=== PATIENT | male | born 1985 | race Caucasian/White ===

== ENCOUNTER 2019-08-02 11:07 | Emergency (ER) | payer BC, OTHER ==
[2019-08-02 11:16] VITALS: BP 120/81; PULSE 86; BMI 27.3
[2019-08-02] MEDS ORDERED: ACETAMINOPHEN 325 MG TABLET (FP) PO ONE (11:20)
--- NOTE | 2019-08-02 11:25 | PDOC ---
History of Present Illness - General Chief Complaint: Cold Symptoms Stated Complaint: BODY ACHES/SORE THROAT Time Seen by Provider: 08/02/19 11:15 History Source: Patient Exam Limitations: No Limitations Past History - Past Medical History Allergies/Adverse Reactions: Allergies Allergy/AdvReac Type Severity Reaction Status Date / Time Penicillins Allergy Verified 08/02/19 11:12 Home Medications: Ambulatory Orders NK [No Known Home Medication] 06/06/14 COPD: No - Immunization History Immunization Up to Date: Yes - Psycho Social/Smoking Cessation Hx Smoking History: Never smoked Number of Cigarettes Smoked Daily: 0 Hx Alcohol Use: No Drug/Substance Use Hx: No Substance Use Type: None Hx Substance Use Treatment: No *Physical Exam - Vital Signs Last Vital Signs Temp Pulse Resp BP Pulse Ox 102 F H 86 19 120/81 98 08/02/19 11:11 08/02/19 11:11 08/02/19 11:11 08/02/19 11:11 08/02/19 11:11 - Physical Exam General Appearance: No: Apparent Distress HEENT: positive: Pharyngeal Erythema. negative: Muffled/Hoarse voice, Tonsillar Exudate, Tonsillar Erythema, Nasal Congestion, Rhinorrhea Respiratory/Chest: positive: Lungs Clear, Normal Breath Sounds. negative: Respiratory Distress Cardiovascular: positive: Regular Rhythm, Regular Rate, S1, S2. negative: Murmur Integumentary: positive: Normal Color Neurologic: positive: Alert Medical Decision Making - Medical Decision Making 34 y/o M with no sig pmh presents with fever, sore throat, body aches, cough, KEMP x 2 days. Fever started last night. Had some rhinorrhea and congestion which resolved yesterday. Denies ear pain, sob, cp, abd pain, n/v/d, recent travel, sick contacts. R/O flu Plan: Flu swab, tylenol 08/02/19 11:24 Flu and rapid strep negative Repeat temp 100.1 Patient overall looking better Likely viral syndrome Supportive care discussed 08/02/19 12:51 Discharge - Discharge Information Problems reviewed: Yes Clinical Impression/Diagnosis: Viral syndrome Condition: Stable Disposition: HOME - Admission No - Additional Discharge Information Prescription Drug Monitoring Program (I-STOP) results: I-STOP not reviewed - Follow up/Referral - Patient Discharge Instructions Patient Printed Discharge Instructions: DI for Viral Upper Respiratory Infection -- Adult Additional Instructions: Thank you for choosing [facility]. It was a pleasure taking care of you. Recommend rest Drink at least 2-3L of water daily Alternate between Tylenol every 4 and Motrin every 6 hours as needed for fever Follow-up with your doctor in 2 days Return to the Emergency Department if your symptoms worsen or persist or have other concerning symptoms. - Post Discharge Activity
[2019-08-02] MEDS ORDERED: ACETAMINOPHEN 325 MG TABLET (FP) ONE (11:30)
[2019-08-02] MEDS ORDERED: KETOROLAC TROMETHAMINE 30 MG/1 ML VIAL IM ONE (12:05)
[2019-08-02] MEDS ORDERED: KETOROLAC TROMETHAMINE 30 MG/1 ML VIAL ONE (12:25)
[2019-08-02 12:50] VITALS: TEMP 100.1
== END 2019-08-02 13:05 | disposition home or self-care (01) ==
LOC: JERFT 11:07
PROC: 3E0233Z Introduction of Anti-inflammatory into Muscle, Percutaneous Approach (ICD-10-PCS; principal; 2019-08-02)
DX: J06.9 Acute upper respiratory infection, unspecified (principal); B97.89 Other viral agents as the cause of diseases classified elsewhere; Z88.0 Allergy status to penicillin
CPT/HCPCS: 87070; 87804; 87880; 99281-25

== ENCOUNTER 2021-04-06 12:04 | Emergency (ER) | payer BC, OTHER ==
[2021-04-06 12:10] VITALS: BP 130/77; PULSE 75; TEMP 97; BMI 33.3
[2021-04-06] MEDS ORDERED: IBUPROFEN 600 MG TABLET (FP) PO ONE (12:36)
== END 2021-04-06 12:43 | disposition home or self-care (01) ==
LOC: JERFT 12:04
DX: H60.92 Unspecified otitis externa, left ear (principal)
CPT/HCPCS: 99283-25

== ENCOUNTER 2022-10-12 15:36 | Emergency (ER) | payer OTHER ==
[2022-10-12 15:47] VITALS: BP 144/70; PULSE 72; RESP 19; TEMP 98; BMI 31.0
[2022-10-12] MEDS ORDERED: IBUPROFEN 600 MG TABLET (FP) PO ONE ×2 (16:48→16:50)
[2022-10-12] MEDS ORDERED: diazePAM 5 MG TABLET PO ONE (16:48)
[2022-10-12] MEDS ORDERED: diazePAM 5 MG TABLET ONE ×2 (16:50→16:52)
== END 2022-10-12 16:54 | disposition home or self-care (01) ==
LOC: JERFT 15:36 → JER 15:36 → JERFT 16:54
DX: M62.830 Muscle spasm of back (principal)
CPT/HCPCS: 99283-25

== ENCOUNTER 2023-02-13 09:40 | Emergency (ER) | payer OTHER ==
[2023-02-13 09:56] VITALS: BP 138/55; PULSE 68; RESP 16; TEMP 98; BMI 30.7
[2023-02-13] MEDS ORDERED: IBUPROFEN 600 MG TABLET (FP) PO ONE ×2 (10:12→10:17)
== END 2023-02-13 10:31 | disposition home or self-care (01) ==
LOC: JERFT 09:40 → JER 09:40 → JERFT 10:31
DX: M25.511 Pain in right shoulder (principal)
CPT/HCPCS: 99283-25

== ENCOUNTER 2023-07-12 03:51 | Emergency (ER) | payer OTHER ==
[2023-07-12 03:55] VITALS: BP 148/80; PULSE 58; RESP 18; TEMP 98.2; BMI 30.2
[2023-07-12] MEDS ORDERED: LIDOCAINE 2.5%/PRILOCAINE 2.5% (5 Gram/TUBE) TP ONE (04:11)
== END 2023-07-12 05:12 | disposition home or self-care (01) ==
LOC: JER 03:51
DX: K62.89 Other specified diseases of anus and rectum (principal); X50.0XXA Overexertion from strenuous movement or load, initial encounter
CPT/HCPCS: 99282-25

== ENCOUNTER 2023-08-24 04:04 | Day surgery (SDC) | payer BC ==
[2023-08-18 14:35] VITALS: BMI 31.3
[2023-08-24] MEDS ORDERED: BUPIVACAINE HCL/PF 0.25% (2.5MG/ML) 10 ML VIAL ONE (11:36)
[2023-08-24] MEDS ORDERED: MIDAZOLAM HCL 2 MG/2 ML SINGLE DOSE VIAL ONE (13:51)
[2023-08-24] MEDS ORDERED: PROPOFOL 20 ML ONE (14:04)
[2023-08-24] MEDS ORDERED: ceFAZolin SODIUM 1 GM VIAL IVPB ONE (14:10)
[2023-08-24] MEDS ORDERED: BUPIVACAINE HCL/PF 0.25% (2.5MG/ML) 10 ML VIAL IJ ONE (14:16)
[2023-08-24] MEDS ORDERED: DEXAMETHASONE SOD PHOSPHATE 4 MG/1 ML VIAL ONE (14:40)
[2023-08-24] MEDS ORDERED: ceFAZolin SODIUM 1 GM VIAL ONE (14:40)
[2023-08-24] MEDS ORDERED: ONDANSETRON 4 MG/2 ML VIAL ONE (14:40)
[2023-08-24] MEDS ORDERED: KETOROLAC TROMETHAMINE 30 MG/1 ML VIAL ONE (14:40)
[2023-08-24] MEDS ORDERED: oxyCODONE HCL 5 MG TABLET PO PRN (14:58)
[2023-08-24] MEDS ORDERED: ACETAMINOPHEN 1000 MG/100 ML BAG IVPB ONE (14:58)
[2023-08-24] MEDS ORDERED: ONDANSETRON 4 MG/2 ML VIAL IVPUSH PRN (14:58)
[2023-08-24] MEDS ORDERED: LACTATED RINGERS SOLUTION 1,000 ML IV SCH (15:00)
[2023-08-24] MEDS ORDERED: ACETAMINOPHEN INJECTION 100 ML IVPB ONE (15:37)
[2023-08-24 16:42] VITALS: RESP 16
[2023-08-24 18:57] VITALS: BP 135/63; PULSE 50; TEMP 98.4
== END 2023-08-24 18:45 | disposition home or self-care (01) ==
LOC: JASU-SURG 04:04
PROVIDERS: ATTEND Surgery
PROC: 06BY0ZC Excision of Hemorrhoidal Plexus, Open Approach (ICD-10-PCS; principal; 2023-08-24 12:45)
DX: K64.0 First degree hemorrhoids (principal)
CPT/HCPCS: 94760